=== PATIENT | male | born 1945 | race African-American/Black ===

== ENCOUNTER 2017-04-02 12:43 | Emergency (ER) | payer OTHER ==
[~2017-04-02] VITALS: Ht 167.6 cm; Wt 73.5 kg
[2017-04-02] MEDS ORDERED: ASPI81TA44 PO (13:01)
[2017-04-02] MEDS ORDERED: OMEP40CA37 PO (13:01)
[2017-04-02] MEDS ORDERED: ATOR10TA PO (13:01)
[2017-04-02] MEDS ORDERED: QUIN20TA31 PO (13:01)
--- NOTE | 2017-04-02 13:10 | NUR ---
DR DE LA ROSA AT THE BEDSIDE FOR EVAL AND EXAM.
[2017-04-02] MEDS ORDERED: MORPHINE SULFATE 2 MG/1 ML DISP.SYRIN IV ONE (13:15)
[2017-04-02] MEDS ORDERED: ONDANSETRON 4 MG/2 ML VIAL IV ONE (13:15)
[2017-04-02 13:32] LABS: *BILIRUBIN,URIN NEGATIVE (NEGATIVE); *BLOOD, URINE NEGATIVE (NEGATIVE); *CLARITY,URINE CLEAR (CLEAR); *KETONES,URINE NEGATIVE (NEGATIVE); *PROTEIN,URINE NEGATIVE (NEGATIVE); *UROBILINOGEN,URINE 0.2 E.U./dl (NORMAL); LEUKOCYTE ESTERASE ,URINE NEGATIVE (NEGATIVE); NITRITE, URINE NEGATIVE (NEGATIVE); UGLUCOSE NEGATIVE (NEGATIVE)
[2017-04-02] MEDS ORDERED: MORPHINE SULFATE 4 MG/1 ML DISP.SYRIN ONE (13:32)
[2017-04-02 13:33] LABS: *COLOR,URINE LIGHT YELLOW (YELLOW)
[2017-04-02] MEDS ORDERED: ONDANSETRON 4 MG/2 ML VIAL ONE (13:33)
[2017-04-02 13:35] LABS: BASOPHILS % (AUTO) 0.3 % (0.0-2.0); EOSINOPHILS % (AUTO) 0.8 % (0.0-7.0); HEMATOCRIT 38.2 % (40-50); HEMOGLOBIN 12.6 G/DL (14.0-18.0); LYMPHOCYTES # (AUTO) 0.6 K/UL (0.8-4.8); LYMPHOCYTES % (AUTO) 10.8 % (20.5-51.5); MEAN CORPUSCULAR HEMOGLOBIN 30.4 UUG (27.0-31.0); MEAN CORPUSCULAR HGB CONC 33 g/dL (32.0-37.0); MONOCYTES # (AUTO) 0.4 K/UL (0.1-1.30); MONOCYTES % (AUTO) 6.1 % (0.0-11.0); NEUTROPHILS # (AUTO) 4.9 K/UL (1.8-8.9); PLATELET COUNT (AUTO) 184 K/UL (150-450); RED BLOOD CELL COUNT(AUTO) 4.16 MIL/UL (4.7-6.1); WHITE BLOOD COUNT (AUTO) 5.9 K/UL (4.0-11.2)
[2017-04-02 13:43] LABS: CREATININE 1.2 mg/dL (0.6-1.3); POTASSIUM 4.1 mmol/L (3.5-5.1)
[2017-04-02 13:45] LABS: BACTERIA,URINE NONE SEEN /HPF (NONE SEEN); RBC,URINE NONE SEEN /HPF (0-3); SQUAMOUS EPITHELIAL CELL,UR FEW /HPF (NONE SEEN); WBC,URINE 0-3 /HPF (0-3)
[2017-04-02 13:57] LABS: BILIRUBIN,DIRECT 0.1 mg/dL (0.0-0.2); BILIRUBIN,TOTAL 0.5 mg/dL (0.2-1.0); ETHANOL < 3 MG/DL (0-0); TOTAL PROTEIN, SERUM 7.5 g/dL (6.4-8.2)
--- NOTE | 2017-04-02 14:15 | NUR ---
PT'S DAUGHTER SIGNED CONSENT FOR CT CONTRAST, PER PT REQUEST.
--- NOTE | 2017-04-02 14:22 | NUR ---
PT LEFT ER FOR CTA.
--- NOTE | 2017-04-02 14:40 | NUR ---
PT BACK FROM CT, BP ELEVATED. DR DE LA ROSA AWARE OF PT'S ELEVATED BP.
[2017-04-02] MEDS ORDERED: ESMOLOL 2.5 GM/NS 250 ML DRIP 250 ML IV STA (14:57)
[2017-04-02] MEDS ORDERED: HYDROMORPHONE 1 MG/1 ML DISP.SYRIN IV ONE ×2 (15:00→15:15)
[2017-04-02] MEDS ORDERED: IV NORMAL SALINE 250 ML IV ONE (15:09)
[2017-04-02] MEDS ORDERED: IOHEXOL 300MG/ML 100 ML INFUS..BTL ONE (15:09)
[2017-04-02 15:10] VITALS: BP 188/110
--- NOTE | 2017-04-02 15:14 | NUR ---
[facility] CALLED BACK. DR DE LA ROSA TO CALL DR ALEXANDER REGARDING PT. AWAITING BED ASSIGNMENT FROM [facility].
--- NOTE | 2017-04-02 15:27 | NUR ---
INCREASED ESMOLOL TO 70 MCG PER PROTOCOL FOR ELEVATED BP 164/101. AWARE.
--- NOTE | 2017-04-02 15:28 | NUR ---
CALLED [facility] FOR PT'S TX AWAITING SURGEON CALL BACK.
[2017-04-02] MEDS ORDERED: HYDROMORPHONE 1 MG/1 ML DISP.SYRIN ONE (15:30)
--- NOTE | 2017-04-02 15:38 | NUR ---
REPORT GIVEN TO [facility]. PT'S FAMILY AWARE OF PT'S TX AND DX.
--- NOTE | 2017-04-02 15:40 | NUR ---
ACCOMPAINED PAR[facility]ICS AND PT TO [facility] ER, PER PARAMEDICS REQUEST AND PT'S UNSTABLE CONDITION. CONTINUE ESMOLOL INFUSION WHILE TRANSFER.
== END 2017-04-02 15:44 | disposition short-term general hospital (02) ==
LOC: ER 12:43
DX: I71.3 Abdominal aortic aneurysm, ruptured (principal); E78.5 Hyperlipidemia, unspecified; I10 Essential (primary) hypertension; K21.9 Gastro-esophageal reflux disease without esophagitis; F10.20 Alcohol dependence, uncomplicated; F17.200 Nicotine dependence, unspecified, uncomplicated; Z79.82 Long term (current) use of aspirin
CPT/HCPCS: 36415; 70030-TC; 71010; 83690; 85025; 85730; 86850; 86900; 86901; 93005; A4663; G0480; J1170; J2270; J2405; J3490; J7050; Q9967